=== PATIENT | male | born 1970 | race Caucasian/White ===

== ENCOUNTER 2022-05-20 10:58 | Outpatient (CLI) | payer BC ==
[~2022-05-20] VITALS: Ht 177.8 cm; Wt 122.9 kg
[2022-05-22] MEDS ORDERED: LOSA100T57 PO (10:46)
[2022-05-22] MEDS ORDERED: SPIR25TA5 PO (10:46)
[2022-05-22] MEDS ORDERED: FAMO-275 PO (10:46)
== END 2022-05-22 10:54 | disposition home or self-care (01) ==
LOC: PREOP 10:58
PROVIDERS: ATTEND Internal Medicine
DX: Z01.818 Encounter for other preprocedural examination (principal)

== ENCOUNTER 2022-05-29 07:19 | Day surgery (SDC) | payer BC ==
--- NOTE | 2022-05-20 06:59 | HISTORY AND PHYSICAL ---
DATE OF SERVICE: 05/29/2022 PANENDOSCOPY HISTORY AND PHYSICAL HISTORY OF PRESENT ILLNESS: The patient is a 52-year-old white male referred by Dr. Parra for his first screening colonoscopy as well as a diagnostic EGD. He reports for the past 3-4 months, he has had some retrosternal burning with a lot of belching. It has been partially improved by daily omeprazole that he has been taking [id number]. He sometimes will have some odynophagia, but denies dysphagia. He denies bright red blood per rectum, melena, abdominal pain or nausea. He thinks that his weight is down about 5 pounds over the last month or two. PAST MEDICAL HISTORY: Significant for hypertension for which she takes spironolactone and losartan apparently with no problems with hyperkalemia. PAST SURGICAL HISTORY: He has had no abdominal surgeries. SOCIAL HISTORY: He is . No children. 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 He has no past smoking history, several beers per month reported. FAMILY HISTORY: He is not aware of any family history of GI tract malignancy. His father did have prostate cancer diagnosed around the age of 65. Father also had type 2 diabetes. Mother has a history of bipolar disorder with hypertension. Has 1 brother with hypertension. REVIEW OF SYSTEMS: CONSTITUTIONAL: Denies night sweats, chills or fever. Does think his weight is down about 5 pounds over the last month or two. GASTROINTESTINAL: As noted in the HPI. PULMONARY: Denies cough, wheezing or shortness of breath. CARDIOVASCULAR: Denies chest pain, orthopnea, PND or pedal edema. PHYSICAL EXAMINATION: GENERAL: Reveals a white male, overweight, in no acute distress, 271 pounds. VITAL SIGNS: Blood pressure 110/90. HEENT: Unremarkable. Sclerae nonicteric. CHEST: Clear to auscultation. CARDIOVASCULAR: Reveals a regular rate and rhythm without murmur, S3, or S4. ABDOMEN: Soft, supple without mass, organomegaly, or tenderness. EXTREMITIES: No cyanosis, clubbing or edema. ASSESSMENT AND PLAN: The patient is being set up for his first screening colonoscopy. He is undergoing diagnostic EGD due to reflux sounding symptoms with belching and weight loss. Prep instructions were given and questions were answered. The rectal examination deferred at the time of my procedure. I thank you for referral of this pleasant gentleman. Job ID: [id number] DocumentID: [id number] Dictated Date: 05/18/2022 16:26:24 Hair Worker Date: 05/18/2022 16:54:00 Dictated By: DM GARCIA MD MTDD
[~2022-05-29] VITALS: Ht 177.8 cm; Wt 122.9 kg
[~2022-05-29 07:19] MED LIST: FAMO-275 PO; LOSA100T57 PO; SPIR25TA5 PO
[2022-05-29] MEDS ORDERED: LACTATED RINGERS 1,000 ML IV STA (07:37)
[2022-05-29 07:44] VITALS: BP 139/88
[2022-05-29] MEDS ORDERED: HURRICAINE EXT TUBE (BENZOCAINE) XX PRN (07:45)
[2022-05-29] MEDS ORDERED: PROPOFOL INJECTION 50 ML IV ONE ×2 (07:50→08:45)
[2022-05-29] MEDS ORDERED: MIDAZOLAM 2 MG/2 ML (VERSED) VIAL ONE (07:50)
--- NOTE | 2022-05-29 08:08 | Pre-Op Note & Conscious Sedat ---
Pre-Operative Progress Note Date H&P Reviewed: May 29, 2022 Time H&P Reviewed: 08:07 History & Physical: H&P Reviewed, Patient Examed, No changes noted Pre-Op Diagnosis: screening Conscious Sedation Pre-Proced ASA Score 2 For ASA 3 and 4: Consider anesthesia and medical clearance. Also, for patients with a history of failed moderate sedation consider anesthesia. Airway Lungs Heart ASA score ASA 1: a normal healthy patient ASA 2: a patient with a mild systemic disease (mid diabetes, controlled hypertension, obesity ASA 3: a patient with a severe systemic disease that limits activity (angina, COPD, prior Myocardial infarction) ASA 4: a patient with an incapacitating disease that is a constant threat to life (CHF, renal failure) ASA 5: a moribund patient not expected to survive 24 hrs. (ruptured aneurysm) ASA 6: a declared brain- patient whose organs are being harvested. For emergent operations, add the letter E after the classification Mallampati Classification Grade 2 Sedation Plan Analgesia, Amnesia, Plan communicated to team members, Discussed options with patient/fam, Discussed risks with patient/fam The patient is an appropriate candidate to undergo the planned procedure, sedation, and anesthesia. The patient immediately re-assessed prior to indication. DM GARCIA MD May 29, 2022 08:08
[2022-05-29 09:15] VITALS: BP 99/54
[2022-05-29 09:20] VITALS: BP 102/57
--- NOTE | 2022-05-29 09:22 | Progress Note-Post Operative ---
Post-Procedure Note Physician (s)/Patient Scheduling Manager (s) Physician DM GARCIA MD Pre-Procedure Diagnosis Pre-Procedure Diagnosis: screening Post-Procedure Diagnosis Post-operative diagnosis: EGD was performed for evaluation of retrosternal chest discomfort with symptoms compatible with gastroesophageal reflux. The patient was placed in the left lateral decubitus position. The endoscope was inserted in the oral cavity and under direct visualization the esophagus was intubated. The endoscope was passed down the esophagus through the stomach into the second portion of the duodenum. A careful inspection was made as the endoscope was withdrawn. Findings the posterior pharynx other than fatty hypertrophy was unremarkable no evidence for erythema was noted the epiglottis arytenoid aperture and true and false vocal folds were unremarkable to gross inspection. The proximal and midesophagus were unremarkable. There is some erythema noted at the Z-line and a couple areas of erythema in the distal esophagus without evidence for ulceration no evidence on gross inspection for Harrington's change was noted. Biopsy was obtained and submitted for histopathology. There was no evidence for hiatal hernia formation. The cardia fundus antrum pylorus pyloric channel duodenal bulb and second portion of Adamaris were unremarkable on gross inspection. A/P 1. Findings suggesting nonerosive esophagitis confined to distal esophagus were present without gross evidence to suggest Harrington's change no evidence for hiatal hernia formation was noted. Patient has noted benefit with proton pump inhibitor therapy for which she was advised to continue for now and strongly recommended other lifestyle changes he is morbidly obese and weight loss would definitely be of benefit as well as not eating or drinking 3 to 4 hours before bedtime. We then proceeded with screening colonoscopy. Prior to undergoing colonoscopy digital rectal evaluation was performed. Anal suture tone was normal and the perianal reflexes intact. Prostate is normal in size and a nodular on digital inspection. No abnormalities noted on digital inspection of the anal canal or distal rectal vault. The colonoscope was then inserted into the rectum and under direct visualization advanced to the cecum. The cecum was then divided by indication of the ileocecal valve and the cecal strap. Photographic documentation was obtained. Quality of prep was fair there was turbid fluid with a little bit of semisolid stool that for the most part was able to suction. Findings: There are no evidence for internal or external hemorrhoids. Present to the distal rectum was a 6 mm sessile hyperplastic appearing polyp it was biopsied and ablated and submitted for histopathology with no blood loss. The remainder the rectum was unremarkable. The sigmoid colon was unremarkable as well with no evidence for diverticular disease. the descending colon splenic flexure transverse colon hepatic flexure ascending colon and cecum were unremarkable except for an area of erythema associated with a questionable sessile polyp without ulceration noted in the proximal transverse colon. It was biopsied and ablated and submitted for histopathology. A/P 1. 1 hyperplastic appearing polyp in the rectum and 1 questionable sessile transverse colonic polyp noted in the proximal portion were biopsied and ablated and submitted for histopathology. As long as there are no surprises on histopathology would advocate consideration for repeat screening colonoscopy in 10 years. CC: Alexandria PALMA MD. DM GARCIA MD May 29, 2022 09:22
[2022-05-29 09:25] VITALS: BP 114/68
[2022-05-29 09:53] VITALS: BP 121/73
--- NOTE | 2022-05-29 10:09 | Anesthesia-General Post-Op ---
MAC Patient Condition Mental Status/LOC: Same as Preop Cardiovascular: Satisfactory Nausea/Vomiting: Absent Respiratory: Satisfactory Pain: Controlled Complications: Absent Post Op Complications Complications None Follow Up Care/Instructions Patient Instructions None needed. Anesthesiology Discharge Order Discharge Order Patient is doing well, no complaints, stable vital signs, no apparent adverse anesthesia problems. No complications reported per nursing. KIMO GRIFFIN CRNA May 29, 2022 10:09
== END 2022-05-29 10:10 | disposition home or self-care (01) ==
LOC: ENDO 07:19
PROVIDERS: ATTEND Internal Medicine
DX: Z12.11 Encounter for screening for malignant neoplasm of colon (principal); K63.5 Polyp of colon; K62.1 Rectal polyp; R14.2 Eructation; R63.4 Abnormal weight loss; I10 Essential (primary) hypertension; E66.01 Morbid (severe) obesity due to excess calories; Z68.38 Body mass index [BMI] 38.0-38.9, adult; Z79.899 Other long term (current) drug therapy